=== PATIENT | male | born 1980 | race Two or more races ===

== ENCOUNTER 2016-05-18 17:24 | Emergency (ER) | payer BC ==
[~2016-05-18] VITALS: Ht 172.7 cm; Wt 72.6 kg
--- NOTE | 2016-05-18 17:34 | NUR ---
[facility] EMT AT BEDSIDE FOR EKG, SINUS TACHYCARDIA NOTED,
[2016-05-18] MEDS ORDERED: ASPIRIN EC 81 MG TABLET.DR PO ONE (17:49)
[2016-05-18] MEDS ORDERED: LORAZEPAM 1 MG TABLET ONE (17:50)
[2016-05-18] MEDS: ASPIRIN 81 MG TAB.CHEW PO ONE (17:55)
[2016-05-18] MEDS: LORAZEPAM 1 MG TABLET PO ONE (17:55)
--- NOTE | 2016-05-18 17:55 | NUR ---
patient is comfortable at rest in bed, does not complain of any respiratory distress, on a monitor, and lab is at bedside.
[2016-05-18 18:14] LABS: BASOPHILS % (AUTO) 0.6 % (0.0-2.0); EOSINOPHILS # (AUTO) 0.1 /CMM (0.0-0.7); EOSINOPHILS % (AUTO) 1.9 % (0.0-6.0); HEMATOCRIT 41 % (39-51); HEMOGLOBIN 13.9 g/dL (13.5-17.5); LYMPHOCYTES # (AUTO) 2.1 /CMM (0.8-4.8); LYMPHOCYTES % (AUTO) 37.2 % (20.0-44.0); MEAN CORPUSCULAR HEMOGLOBIN 30 PG (26.0-33.0); MEAN CORPUSCULAR HGB CONC 34 g/dl (31.0-36.0); MEAN CORPUSCULAR VOLUME 89 fL (80-96); MONOCYTES # (AUTO) 0.4 /CMM (0.1-1.30); MONOCYTES % (AUTO) 6.6 % (2.0-12.0); NEUTROPHILS % (AUTO) 53.7 % (43.0-81.0); PLATELET COUNT (AUTO) 210 /CMM (150-450); RDW COEFFICIENT OF VARIATION 12.4 (11.5-15.0); RED BLOOD CELL COUNT(AUTO) 4.63 MIL/uL (4.5-6.0); WHITE BLOOD COUNT (AUTO) 5.6 K/uL (4.3-11.0)
[2016-05-18 18:24] LABS: CALCIUM, SERUM 9.4 mg/dL (8.5-10.1); CARBON DIOXIDE 26 mmol/L (21-32); CHLORIDE 105 mmol/L (98-107); GFR 85 mL/min (>60); GLUCOSE 110 mg/dL (74-106); POTASSIUM 3.8 mmol/L (3.5-5.1); SODIUM SERUM 140 mmol/L (136-145); UREA NITROGEN, BLOOD 12 mg/dL (7-18)
[2016-05-18 18:33] LABS: INR 0.99 (0.87-1.13); PROTHROMBIN TIME 10.3 SECS (9.5-12.7); TROPONIN I < 0.017 ng/mL (0.00-0.056)
--- NOTE | 2016-05-18 19:24 | NUR ---
Assumed care of pt. pt sitting up in bed w/ resp even & unlabored, denies any cp, no sob w/ nad noted. On continuous cardiac monitoring. Awaiting repeat trop I.
--- NOTE | 2016-05-18 20:28 | NUR ---
mobile sales technician at bedside for repeat trop I blood draw.
--- NOTE | 2016-05-18 21:14 | NUR ---
MONIKA Zamora at bedside for update on pt status. pt sitting up in bed w/ resp even & unlabored, denies any cp at this time, no sob w/ nad noted.
--- NOTE | 2016-05-18 21:17 | NUR ---
Patient discharged to home in stable condition. Written and verbal after care instructions given. Patient verbalizes understanding of instruction.
[2016-05-18 21:19] VITALS: BP 118/71
--- NOTE | 2016-05-18 21:19 | NUR ---
Patient discharged to home in stable condition. Written and verbal after care instructions given. Patient verbalizes understanding of instruction.
== END 2016-05-18 21:20 | disposition home or self-care (01) ==
LOC: ER 17:26
DX: R07.9 Chest pain, unspecified (principal); F41.9 Anxiety disorder, unspecified
CPT/HCPCS: 36415; 71010; 80048; 84484 ×2; 85025; 85730; 93005; 99285; A4606; Z7610